=== PATIENT | male | born 1945 | race Caucasian/White ===

== ENCOUNTER → 2023-08-03 07:12 | Outpatient (REF) | payer MEDICARE, OTHER, SELFPAY ==
[2023-08-03 08:07] LABS: % Basophils 0.9 % (0-2); % Eosinophils 3.5 % (0-6); % Immature Granulocytes 0.3 % (0-0.5); % Lymphocytes 28.5 % (20.5-51.1); % Monocytes 7.9 % (1.7-9.3); % Neutrophils 58.9 % (42.2-75.2); Absolute Basophils 0.1 10^3/uL (0-0.2); Absolute Eosinophils 0.2 10^3/uL (0-0.7); Absolute Lymphocytes 1.9 10^3/uL (1.2-3.4); Absolute Monocytes 0.5 10^3/uL (0.1-0.6); Hematocrit 48.9 % (39.0-52.0); Hemoglobin 16.7 g/dL (13.0-18.0); Mean Corp Hgb Conc. 34.2 g/dL (33.0-37.0); Mean Corpuscular Hgb 31.5 pg (27.0-31.0); Mean Corpuscular Volume 92.3 fL (80.0-94.0); Mean Platelet Volume 10.8 fL (7.4-10.4); Nucleated Red Blood Cells % 0 % (-); Platelet Count 175 10^3/uL (130-400); Red Cell Dist. Width 13.7 % (11.5-14.5); White Blood Cell Count 6.8 10^3/uL (4.8-10.8)
[2023-08-03 09:42] LABS: ALT (SGPT) 23 U/L (0-50); AST (SGOT) 28 U/L (17-59); Albumin 4.2 g/dl (3.5-5.0); Alkaline Phosphatase 72 U/L (38-126); Blood Urea Nitrogen 22 mg/dl (9-20); Calcium 9.4 mg/dl (8.4-10.2); Carbon Dioxide 29 mmol/L (22-30); Chloride 104 mmol/L (98-107); Glucose 106 mg/dl (70-99); Potassium 4.3 mmol/L (3.5-5.1); Sodium 137 mmol/L (135-145); Total Bilirubin 0.4 mg/dl (0.2-1.3); Total Protein 6.4 g/dl (6.3-8.2); Uric Acid 4.9 mg/dl (3.5-8.5); eGFR > 60.00
== END ==
LOC: REG 07:12
PROVIDERS: ATTENDING PHYSICIAN Hospitalist; FAMILY PHYSICIAN Student in an Organized Health Care Education/Training Program
DX: M10.9 Gout, unspecified (principal); Z79.899 Other long term (current) drug therapy
CPT/HCPCS: 36415; 80053; 84550; 85025

== ENCOUNTER → 2023-09-13 06:44 | Outpatient (REF) | payer MEDICARE, OTHER, SELFPAY ==
[2023-09-13 07:48] LABS: HDL Cholesterol 31 mg/dl; LDL Cholesterol, Calculated 83 mg/dl; Total Cholesterol 162 mg/dl (50-199); Triglyceride 244 mg/dl (10-149); Very Low Density Lipoprotein 48 mg/dl (0-30)
[2023-09-13 09:00] LABS: Glycohemoglobin (HgbA1c) 5.9 % (4.0-5.6)
[2023-09-13 09:30] LABS: PSA, Total - Screen 2.98 ng/ml (0.0-4.0)
[2023-09-13 09:34] LABS: TSH Reflex To Free T4 3.36 uIU/ml (0.47-4.68)
[2023-09-13 10:24] LABS: Vitamin B12 978 pg/ml (239-931)
[2023-09-13 15:43] LABS: Syphilis/T. pallidum Ab Reflex Negative (Negative)
[2023-09-15 19:51] LABS: Albumin 4.43 g/dL (3.75-5.01); Alpha 1 Globulin 0.31 g/dL (0.19-0.46); Alpha 2 Globulin 0.67 g/dL (0.48-1.05); SPEP IFE Reflex Not Done; Total Protein-Electrophoresis 6.8 g/dL (6.3-8.2)
== END ==
LOC: REG 06:44
PROVIDERS: ATTENDING PHYSICIAN Student in an Organized Health Care Education/Training Program
DX: G62.9 Polyneuropathy, unspecified (principal); E78.00 Pure hypercholesterolemia, unspecified; Z12.5 Encounter for screening for malignant neoplasm of prostate; N52.8 Other male erectile dysfunction
CPT/HCPCS: 36415; 80061; 82607; 83036; 84155; 84165; 84403; 84443; 86780; G0103

== ENCOUNTER 2024-01-13 10:50 | Emergency (ER) | payer MEDICARE, OTHER, SELFPAY ==
[2024-01-13 10:53] VITALS: BP 157/88
--- NOTE | 2024-01-13 11:01 | ED.GENMED ---
History of Present Illness
General
Chief Complaint: Back Pain
Time Seen by Provider: 01/13/24 11:00
History of Present Illness
History of Present Illness:
HPI: Patient presents with low back pain that started a few weeks ago. 2.5yrs back injury -treated successfully with epidurals. 1 month ago, lifted heavy objects while helping his son move into a house in [place] now with ongoing/worsening low
back pain which radiates to the anterior thighs bilaterally. Pain worsened on his way back home from [place] driving there are no bowel or bladder incontinence or retention issues. No fevers. No other back pain 'red flags'.
EXAM:
GENERAL: Well appearing in no distress
HEENT: Moist oral mucosa
NEUROLOGIC: Excellent strength all extremities, no obvious coordination deficits, he has good strength in an L5 and S1 distribution
PSYCHIATRIC: Appropriate mental status, normal insight and judgement
BACK: There is some mild tenderness at the medial aspect of the right iliac crest region
EXTREMITIES: Nontender, no edema, moves all extremities equally
SKIN: No rash, no lesions
TIME OF INITIAL ENCOUNTER: 11:30 AM
NUMBER AND COMPLEXITY OF PROBLEMS ADDRESSED AT THE ENCOUNTER
� Chronic conditions affecting care: GERD, hyperlipidemia
� Acute Exacerbation and/or Progression of Chronic Illness: This is an acute problem
� Differential Diagnosis includes: Spinal stenosis, sciatica, herniated disc, degenerative disc disease, osteoarthritis
AMOUNT AND/OR COMPLEXITY OF DATA TO BE REVIEWED AND ANALYZED
� I performed an independent evaluation of and my interpretation is:
EKG:
CT:
X-rays: I personally reviewed x-rays of the pelvis and lumbar spine which show some mild degenerative disease but no definite acute abnormality
Laboratory Studies:
Other:
� Review of other/old records: I reviewed records�the patient had a vascular evaluation in July 2021
� Clinical information was obtained by an independent historian:
� Prescriptions/Medications Considered but not given: Offered and considered steroids�but he ultimately declined.
� Further testing considered but not performed:
RISK OF COMPLICATIONS AND/OR MORBIDITY OR MORTALITY OF PATIENT MANAGEMENT
� Social determinants of health affecting care: Lives at home
� Discussion with other providers:
� Escalation of care including admission/observation vs risk of discharge considered: The patient appears fairly comfortable. He does not necessarily want any narcotic analgesia, but would prefer narcotic over steroid given side
effects of steroids. Plain film imaging relatively unremarkable. Neurologic exam is unremarkable. He is well-appearing at time of discharge.
Past History
Past History
ED Past Medical History: GERD, Hypercholesterolemia and Other
ED Past Surgical History: Other (Agree with past surgical history)
Social History
Tobacco: Non-smoker
Personal:
Living: with family
Phy Exam
Physical Exam
Physical Exam:
See HPI
Course
Orders/Labs/Results
Orders:
Orders
01/13/24 11:49
CR Lumbar Spine Comp Min 4 Vw* Urgent
Comment:
Reason For Exam: pain R>L
CR Pelvis - 1 Or 2 Views Urgent
Comment:
Reason For Exam: pain R>L
Vital Signs
Initial and Last Documented VS:
Initial Vital Signs
Temp Pulse Resp BP Pulse Ox
98.7 F 80 18 157/88 97
01/13/24 10:53 01/13/24 10:53 01/13/24 10:53 01/13/24 10:53 01/13/24 10:53
Last Documented Vital Signs
Temp Pulse Resp BP Pulse Ox
98.7 F 80 18 157/88 97
01/13/24 10:53 01/13/24 10:53 01/13/24 10:53 01/13/24 10:53 01/13/24 10:53
*Critical Care Note
Total Time (30-74mins, 75-104mins- exclusive of procedures): Not Applicable
ED Attending Note
-
Portions of this chart may have been created with voice recognition software.� Occasional wrong word or��sound alike� substitutions may have occurred due to the inherent limitations of voice recognition software.
Discharge Plan
Departure
Patient Disposition: Home (Routine Discharge)
Date of Disposition: 01/13/24
Time of Disposition: 13:23
Patient with high blood pressure during this ER visit?: Yes
Discharge Problem:
Low back pain
Instructions: Low Back Pain (DC), BLOOD PRESSURE
Prescriptions:
New
hydrocodone-acetaminophen 5-325 mg tablet
1 tab PO Q8H PRN (Reason: Pain) Qty: 14 0RF
No Action
Aspirin
81 mg PO DAILY
Crestor:
20 mg PO DAILY
Dorzolamide/Timolol/Pf
2 drp BOTH EYES DAILY
Latanoprost
1 drp BOTH EYES DAILY
ondansetron [Zofran ODT] 8 MG tablet,disintegrating
8 mg PO TID PRN (Reason: nausea/vomiting) Qty: 20 0RF
prednisone 10 MG tablet
10 mg PO .TAPER Qty: 30 0RF
Rx Instructions:
Take 40mg daily x3days, 30mg daily x3days,
20mg daily x3days, 10mg daily x3days.
hydrocodone-acetaminophen 1 TABLET tablet
1 - 2 tab PO Q4HPRN PRN (Reason: pain) Qty: 15 0RF
benzonatate 100 mg capsule
200 mg PO BID PRN (Reason: Cough) Qty: 14 0RF
Referrals:
Jennifer Ayala MD [Family Provider] -
Activity Restrictions/Additional Instructions:
X-rays of the low back and pelvis are unremarkable. Mild degenerative disease is noted. I am sending a prescription for Vicodin for few days to your pharmacy. Please follow-up with your primary care doctor. Consider also taking 3-4
[id number] ibuprofen (Motrin) every 8 hours with food for a few days�these work differently than narcotics to. Return here if worse.
Interventions
Interventions:
*Risk Screen - Suicide Last Done: 01/13/24 10:53
*General Assessment Last Done: 01/13/24 10:53
*Neglect/Abuse Screening Last Done: 01/13/24 10:53
*Nursing Disposition Last Done: 01/13/24 13:36
ED-Musculoskeletal Assessment Last Done: 01/13/24 11:30
Discharge Date and Time
Discharge Date/Time: 01/13/24 13:37
Print Language: SOUTH SUDANESE
== END 2024-01-13 13:37 | disposition home or self-care (01) ==
LOC: EMR 10:50
PROVIDERS: EMERGENCY PHYSICIAN Emergency Medicine; FAMILY PHYSICIAN Student in an Organized Health Care Education/Training Program
DX: M54.50 Low back pain, unspecified (principal); X50.0XXA Overexertion from strenuous movement or load, initial encounter; Y93.89 Activity, other specified; R03.0 Elevated blood-pressure reading, without diagnosis of hypertension; K21.9 Gastro-esophageal reflux disease without esophagitis; E78.00 Pure hypercholesterolemia, unspecified; Z79.82 Long term (current) use of aspirin
CPT/HCPCS: 99283; 72110; 72170

== ENCOUNTER 2024-01-16 07:39 | Emergency (ER) | payer MEDICARE, OTHER, SELFPAY ==
[2024-01-16 07:40] VITALS: BP 140/70
--- NOTE | 2024-01-16 07:49 | ED.GENMED ---
History of Present Illness
General
Chief Complaint: Back Pain
Source: patient
Exam Limitations: none
Time Seen by Provider: 01/16/24 07:49
Nursing documentation reviewed up to this point in time: agreed with
History of Present Illness
History of Present Illness:
78-year-old male with history of GERD, HLD, right nephrectomy 2019, presents for low back pain. He was seen here 3 days ago for same after lifting heavy objects while helping his son move into his home in [place] and then driving home 3 weeks ago.
He was given a prescription for hydrocodone acetaminophen he states helped after the first dose but not since. He states Ibuprofen 800 mg also helped after the first dose but not since. He has been wearing his back brace for support which gives
him some relief. He is having trouble sleeping due to the pain. He states pain in mid to right lower back, radiates down front of thigh. Denies loss of bowel or bladder control, denies weakness in his legs or saddle anesthesia.
He had back pain 2.5 yrs ago and had epidural at that time. Denies f/c/n/v/d/c.
Has appointment with Tony but soonest appointment is 3 weeks from now.
Past History
Past History
ED Past Medical History: GERD, Hypercholesterolemia and Other
ED Past Surgical History: Other (Agree with past surgical history)
Social History
Tobacco: Non-smoker
Personal:
Living: with family
Review of Systems
Review of Systems
Allergies reviewed?: Yes
All Other Systems: ROS reviewed and negative except as documented in HPI and ROS
Constitutional: Denies fever
Cardiac: Denies chest pain
ABD/GI: Denies abdominal pain, nausea, vomiting or diarrhea
: Denies dysuria, frequency, incontinence or difficulty voiding
Musculoskeletal: Reports back pain (Right lower back with radiation down the front of right thigh)
Skin: Reports no symptoms
Neurological: Reports no symptoms
Phy Exam
Physical Exam
Physical Exam:
GENERAL: No acute distress. A&Ox3.
CONSTITUTIONAL: Afebrile.
EYES: clear, conjunctivae normal
RESPIRATORY: Regular respirations, nonlabored, lungs clear.
CARDIOVASCULAR: Regular rate and rhythm, no murmurs, no rubs.
GI: Soft, nontender, normal BS
MUSCULOSKELETAL: Unable to elicit pain with palpation of the lower back the patient 0.2 the immediate right of L3 to identify where his pain is. Neg bilateral SLR. Full ROM at hip, knee, ankle. Pt moving well, up and down off stretcher, ambulating
well but slowly. Well perfused.
SKIN: Warm, dry, pink
PSYCH: Normal mood and affect. Well kept, interactive and appropriate
NEUROLOGIC: Awake, alert and oriented. No focal neurological deficits
Course
Orders/Labs/Results
Orders:
Orders
01/16/24 08:03
Dexamethasone Pf [Decadron] 10 mg PO NOW STA
Vital Signs
Initial and Last Documented VS:
Initial Vital Signs
Temp Pulse Resp BP Pulse Ox
97.7 F 68 16 140/70 98
01/16/24 07:40 01/16/24 07:40 01/16/24 07:40 01/16/24 07:40 01/16/24 07:40
Last Documented Vital Signs
Temp Pulse Resp BP Pulse Ox
97.7 F 78 16 136/75 98
01/16/24 07:40 01/16/24 08:42 01/16/24 08:42 01/16/24 08:42 01/16/24 08:42
MDM/Problems Addressed
Differential Diagnosis Includes:
low back strain, bulging disc, sciatica, DJD spine
MDM/Problems Addressed:
78-year-old male with history of GERD, HLD, right nephrectomy 2020, presents for low back pain. He was seen here 3 days ago for same after lifting heavy objects while helping his son move into his home in [place] and then driving home 3 weeks ago.
He was given a prescription for hydrocodone acetaminophen he states helped after the first dose but not since. He states Ibuprofen 800 mg also helped after the first dose but not since. He has been wearing his back brace for support which gives
him some relief. He is having trouble sleeping due to the pain. He states pain in mid to right lower back, radiates down front of thigh. Denies loss of bowel or bladder control, denies weakness in his legs or saddle anesthesia.
He had back pain 2.5 yrs ago and had epidural at that time. Denies f/c/n/v/d/c.
Has appointment with Tony but soonest appointment is 3 weeks from now.
Afebrile, NAD
No infectious signs
Hx mechanical injury
No cauda equina
Pt moving about well independently
Requesting steroids as they have helped in the past
Rx for prednisone taper sent to his pharmacy
*Critical Care Note
Total Time (30-74mins, 75-104mins- exclusive of procedures): Not Applicable
ED Attending Note
-
Portions of this chart may have been created with voice recognition software.� Occasional wrong word or��sound alike� substitutions may have occurred due to the inherent limitations of voice recognition software.
Discharge Plan
Departure
Patient Disposition: Home (Routine Discharge)
Date of Disposition: 01/16/24
Time of Disposition: 08:12
Patient with high blood pressure during this ER visit?: No
Condition: Good
Discharge Problem:
Acute low back pain with right-sided sciatica
Instructions: Low Back Pain (DC), Sciatica (DC)
Prescriptions:
New
prednisone 10 mg Tablet
See Rx Instructions .ROUTE .COMPLEX Qty: 30 0RF
Rx Instructions:
Take By Mouth:
40 mg daily x3 days, 30 mg daily x3 days,
20 mg daily x3 days, 10 mg daily x3 days.
No Action
Aspirin
81 mg PO DAILY
Crestor:
20 mg PO DAILY
Dorzolamide/Timolol/Pf
2 drp BOTH EYES DAILY
Latanoprost
1 drp BOTH EYES DAILY
ondansetron [Zofran ODT] 8 MG tablet,disintegrating
8 mg PO TID PRN (Reason: nausea/vomiting) Qty: 20 0RF
prednisone 10 MG tablet
10 mg PO .TAPER Qty: 30 0RF
Rx Instructions:
Take 40mg daily x3days, 30mg daily x3days,
20mg daily x3days, 10mg daily x3days.
hydrocodone-acetaminophen 1 TABLET tablet
1 - 2 tab PO Q4HPRN PRN (Reason: pain) Qty: 15 0RF
benzonatate 100 mg capsule
200 mg PO BID PRN (Reason: Cough) Qty: 14 0RF
hydrocodone-acetaminophen 5-325 mg tablet
1 tab PO Q8H PRN (Reason: Pain) Qty: 14 0RF
Referrals:
Jennifer Ayala MD [Family Provider] - Follow up in 5-7 days
Activity Restrictions/Additional Instructions:
As we discussed, you were given a dose of a steroid (Decadron 10 mg) here today
I sent a prescription to your pharmacy for a prednisone taper, started tomorrow.
You may continue ibuprofen 600 mg up to 3 times a day if needed for pain
Heating pad may help
Continue wearing your back brace for support since it helped
Keep your appointment with pain management in 3 weeks
In the meantime, see your family doctor for recheck in 5 to 7 days if not significantly better by the
Interventions
Interventions:
*Risk Screen - Suicide Last Done: 01/16/24 07:40
*General Assessment Last Done: 01/16/24 08:42
*Neglect/Abuse Screening Last Done: 01/16/24 07:40
ED- Fall Risk Assessment Last Done: 01/16/24 08:42
*ED COVID-19 Vaccine History Last Done: 01/16/24 08:42
*Nursing Disposition Last Done: 01/16/24 08:42
ED-Musculoskeletal Assessment Last Done: 01/16/24 08:42
Discharge Date and Time
Discharge Date/Time: 01/16/24 08:45
Print Language: THAI
[2024-01-16] MEDS: DECADRON 10 MG PO (08:18)
[2024-01-16 08:42] VITALS: BP 136/75
== END 2024-01-16 08:45 | disposition home or self-care (01) ==
LOC: EMR 07:39
PROVIDERS: EMERGENCY PHYSICIAN Emergency Medicine; FAMILY PHYSICIAN Student in an Organized Health Care Education/Training Program
DX: M54.41 Lumbago with sciatica, right side (principal); K21.9 Gastro-esophageal reflux disease without esophagitis; E78.00 Pure hypercholesterolemia, unspecified
CPT/HCPCS: 99283

== ENCOUNTER → 2024-07-16 06:20 | Outpatient (REF) | payer MEDICARE, OTHER, SELFPAY ==
[2024-07-16 07:19] LABS: % Basophils 0.6 % (0-2); % Eosinophils 3.3 % (0-6); % Immature Granulocytes 0.3 % (0-0.5); % Lymphocytes 24.4 % (20.5-51.1); % Monocytes 7.8 % (1.7-9.3); % Neutrophils 63.6 % (42.2-75.2); Absolute Eosinophils 0.2 10^3/uL (0-0.7); Absolute Lymphocytes 1.8 10^3/uL (1.2-3.4); Absolute Monocytes 0.6 10^3/uL (0.1-0.6); Absolute Neutrophils 4.6 10^3/uL (1.4-6.5); Hematocrit 49.3 % (39.0-52.0); Hemoglobin 16.6 g/dL (13.0-18.0); Mean Corp Hgb Conc. 33.7 g/dL (33.0-37.0); Mean Platelet Volume 11.1 fL (7.4-10.4); Nucleated Red Blood Cells % 0 % (-); Platelet Count 181 10^3/uL (130-400); Red Blood Cell Count 5.36 10^6/uL (4.70-6.10); Red Cell Dist. Width 13.4 % (11.5-14.5); White Blood Cell Count 7.2 10^3/uL (4.8-10.8)
[2024-07-16 07:52] LABS: ALT (SGPT) 26 U/L (0-50); AST (SGOT) 26 U/L (17-59); Albumin 4.1 g/dl (3.5-5.0); Alkaline Phosphatase 57 U/L (38-126); Blood Urea Nitrogen 21 mg/dl (9-20); Calcium 9.8 mg/dl (8.4-10.2); Carbon Dioxide 32 mmol/L (22-30); Chloride 104 mmol/L (98-107); Glucose 98 mg/dl (70-99); Potassium 4.2 mmol/L (3.5-5.1); Sodium 143 mmol/L (135-145); Total Bilirubin 0.9 mg/dl (0.2-1.3); Total Protein 6.3 g/dl (6.3-8.2); Uric Acid 4.8 mg/dl (3.5-8.5); eGFR > 60.00
== END ==
LOC: REG 06:20
PROVIDERS: ATTENDING PHYSICIAN Hospitalist; FAMILY PHYSICIAN Student in an Organized Health Care Education/Training Program
DX: M10.9 Gout, unspecified (principal); Z79.899 Other long term (current) drug therapy
CPT/HCPCS: 36415; 80053; 84550; 85025

== ENCOUNTER → 2024-09-03 07:25 | Outpatient (REF) | payer MEDICARE, OTHER, SELFPAY ==
[2024-09-03 10:21] LABS: HDL Cholesterol 32 mg/dl; LDL Cholesterol, Calculated 148 mg/dl; Total Cholesterol 218 mg/dl (50-199); Triglyceride 191 mg/dl (10-149); Very Low Density Lipoprotein 38 mg/dl (0-30)
[2024-09-03 10:52] LABS: PSA, Total - Screen 2.69 ng/ml (0.0-4.0)
[2024-09-03 11:38] LABS: Glycohemoglobin (HgbA1c) 5.4 % (4.0-5.6)
== END ==
LOC: REG 07:25
PROVIDERS: ATTENDING PHYSICIAN Student in an Organized Health Care Education/Training Program; FAMILY PHYSICIAN Student in an Organized Health Care Education/Training Program
DX: G62.9 Polyneuropathy, unspecified (principal); E78.9 Disorder of lipoprotein metabolism, unspecified; Z12.5 Encounter for screening for malignant neoplasm of prostate; D58.2 Other hemoglobinopathies
CPT/HCPCS: 36415; 80061; 83036; G0103

== ENCOUNTER → 2024-09-25 06:33 | Outpatient (REF) | payer MEDICARE, OTHER, SELFPAY ==
[2024-09-25 07:42] LABS: HDL Cholesterol 26 mg/dl; LDL Cholesterol, Calculated 92 mg/dl; Total Cholesterol 161 mg/dl (50-199); Triglyceride 215 mg/dl (10-149); Very Low Density Lipoprotein 43 mg/dl (0-30)
== END ==
LOC: REG 06:33
PROVIDERS: ATTENDING PHYSICIAN Student in an Organized Health Care Education/Training Program; FAMILY PHYSICIAN Student in an Organized Health Care Education/Training Program
DX: E78.2 Mixed hyperlipidemia (principal)
CPT/HCPCS: 36415; 80061

== ENCOUNTER 2025-02-24 01:58 | Emergency (ER) | payer MEDICARE, OTHER, SELFPAY ==
[2025-02-24 02:07] VITALS: BP 180/92
[2025-02-24 02:09] VITALS: BP 180/93
[2025-02-24 02:14] VITALS: BMI 22.4
[2025-02-24 02:26] LABS: Hematocrit 44.3 % (39.0-52.0); Hemoglobin 15.5 g/dL (13.0-18.0); Mean Corp Hgb Conc. 35.0 g/dL (33.0-37.0); Mean Corpuscular Volume 91.5 fL (80.0-94.0); Nucleated Red Blood Cells % 0 % (-); Platelet Count 166 10^3/uL (130-400); Red Cell Dist. Width 13.6 % (11.5-14.5)
[2025-02-24 02:49] LABS: ALT (SGPT) 22 U/L (0-50); AST (SGOT) 24 U/L (17-59); Albumin 4.4 g/dl (3.5-5.0); Alkaline Phosphatase 57 U/L (38-126); Blood Urea Nitrogen 28 mg/dl (9-20); Calcium 10.0 mg/dl (8.4-10.2); Carbon Dioxide 26 mmol/L (22-30); Chloride 105 mmol/L (98-107); Estimated Creatinine Clearance 64 ml/min; Glucose 120 mg/dl (70-99); Potassium 4.1 mmol/L (3.5-5.1); Sodium 140 mmol/L (135-145); Total Protein 6.6 g/dl (6.3-8.2); eGFR > 60.00
[2025-02-24 02:59] LABS: Troponin I < 0.012 ng/ml
[2025-02-24 03:00] VITALS: BP 137/75
[2025-02-24 04:00] VITALS: BP 138/83
--- NOTE | 2025-02-24 04:42 | ED.GENMED ---
History of Present Illness
General
Chief Complaint: Anxiety
Source: patient and spouse
Exam Limitations: none
Time Seen by Provider: 02/24/25 02:09
History of Present Illness
History of Present Illness:
The patient is a 79-year-old male who presents with chest pain, a sensation of panic, shortness of breath, and dizziness. The patient reports that these symptoms began after consuming a THC gummy, an action taken in an attempt to improve sleep. The
patient notes that the symptoms initiated shortly after taking a whole gummy tonight. Prior to this, he only consumed a half gummy and does not commonly use them. He associates his symptoms with a dry mouth and feels paranoid about the situation. An
Electrocardiogram (EKG) was performed, revealing no signs indicative of myocardial infarction. The patient mentioned he normally struggles with sleep and takes melatonin sporadically, which sometimes leads to rebound insomnia when used consecutively.
His only daily medication is allopurinol.
Past History
Past History
ED Past Medical History: GERD, Hypercholesterolemia and Other (Gout)
ED Past Surgical History: Appendectomy, Cholecystectomy and Urological (Right nephrectomy 2019)
Social History
Tobacco: Non-smoker
Alcohol: None
Personal:
Living: with family
Employment: Retired
Family History
Family History: Other (Noncontributory)
Phy Exam
Physical Exam
Physical Exam:
GENERAL: 79-year-old gentleman appears his stated age, awake and alert, pleasant, appears in no acute distress. is accompanying.
EYE: anicteric
NECK: Supple, nontender, no meningismus, no significant adenopathy.
ENT: posterior pharynx is clear, oral mucosa is mildly dry. No rhinorrhea.
CARDIAC: Regular rate and rhythm. no murmur.
LUNGS: Clear breath sounds bilaterally, no acute respiratory distress, no wheezes/rales/rhonchi
ABDOMEN: Soft, nondistended, without focal tenderness, normoactive BS.
NEUROLOGICAL: Alert and oriented x3, no focal neuro deficits.
SKIN: Warm and dry, normal color, skin intact. No rash.
MUSCULOSKELETAL: No C/C/E. peripheral pulses are full and equal b/l. No palpable tenderness.
PSYCH: Very mildly anxious, easily communicative.
Course
Orders/Labs/Results
Orders:
Orders
02/24/25 01:59
ECG [Electrocardiogram (*1)] Urgent
Reason for Study: Chest Pain
02/24/25 02:00
EKG- Treatment ONCE
02/24/25 02:15
Cardiac Monitoring- Treatment ONCE
IV Insert/Care/Rem.- Treatment PRN
CR Chest - 2 Views Urgent
Comment:
Reason For Exam: cp/sob
O2 Therapy [RESP] Urgent
Titrate/Wean O2 to maintain O2 sat greater than (%): 90
Special Instructions: Maintain sats >/=90%
Pulse Ox/spot Check [RESP] Urgent
Quantity: 1
Special Instructions: ON ROOM AIR
02/24/25 02:17
Complete Blood Count/With Diff Urgent
Comprehensive Metabolic Panel Urgent
Troponin I Urgent
02/24/25 03:24
EKG- Treatment ONCE
02/24/25 04:00
Electrocardiogram (*1) Urgent
Reason for Study: Chest Pain
Troponin I Urgent
Abnormal Lab Results
02/24/25
02:17
MCH 32.0 H pg
(27.0-31.0)
MPV 11.1 H fL
(7.4-10.4)
Absolute Monos (auto) 0.7 H 10^3/uL
(0.1-0.6)
BUN 28 H mg/dl
(9-20)
Glucose 120 H mg/dl
(70-99)
02/24/25 02:17
02/24/25 02:17
Vital Signs
Initial and Last Documented VS:
Initial Vital Signs
Temp Pulse Resp BP Pulse Ox
97.8 F 66 20 180/92 97
02/24/25 02:07 02/24/25 02:07 02/24/25 02:07 02/24/25 02:07 02/24/25 02:07
Last Documented Vital Signs
Temp Pulse Resp BP Pulse Ox
97.8 F 62 14 138/83 94
02/24/25 02:07 02/24/25 04:30 02/24/25 04:30 02/24/25 04:00 02/24/25 04:49
MDM/Problems Addressed
Differential Diagnosis Includes:
The Differential Diagnosis includes, in no particular order and is not limited to:
1. Acute Anxiety or Panic Attack
2. Myocardial Ischemia
3. Drug-Induced Reaction (THC)
4. Transient Ischemic Attack
5. Orthostatic Hypotension
6. Hypoglycemia
7. Hyperventilation Syndrome
8. Dehydration
9. Atrial Fibrillation
10. Gastroesophageal Reflux Disease (GERD)
MDM/Problems Addressed:
Acute paranoia accompanied with chest pain, feeling of panic, shortness of breath, dizziness and dry mouth.
I highly suspect 10 mg THC ingestion as cause for his symptoms.
EKG is reassuring, no evidence of ischemia.
No prior history of CAD nor thromboembolism and no significant risk factors for such.
Will check labs as well as chest x-ray and continue to monitor.
*Radiology
Radiology exam reviewed: preliminary read by ED provider (Chest x-ray is unremarkable and unchanged from previous.)
*Pulse Oximetry
SaO2: 94
Oxygen Mode of Delivery: Room air
Patient hypoxic: no
*EKG
Interpreted by ED Provider?: Yes
Interpretation: normal
Comparison EKG: no comparison EKG present
Rate: normal
Rhythm: sinus and PAC's
[place]: normal axis
Interval: normal interval
QRS Pattern: normal QRS
Ischemia: no ischemia
*Wall Cleaner Interpretation
Rate: normal
Interpretation: normal
Rhythm: sinus
*Critical Care Note
Total Time (30-74mins, 75-104mins- exclusive of procedures): Not Applicable
Update Note
Update Note:
04:55
Labs are unremarkable including normal troponin x 2.
As above, highly suspect symptoms related to THC gummy patient has been encouraged to avoid THC going forward.
Recommend prompt follow-up with PCP to discuss options for issues with insomnia.
ED Attending Note
-
Portions of this chart may have been created with voice recognition software.� Occasional wrong word or��sound alike� substitutions may have occurred due to the inherent limitations of voice recognition software.
Discharge Plan
Departure
Patient Disposition: Home (Routine Discharge)
Date of Disposition: 02/24/25
Time of Disposition: 04:53
Patient with high blood pressure during this ER visit?: No
Condition: Good
Discharge Problem:
Adverse effect of cannabis, Insomnia
Instructions: Insomnia, Good sleep hygiene
Prescriptions:
No Action
Aspirin
81 mg PO DAILY
Crestor:
20 mg PO DAILY
Dorzolamide/Timolol/Pf
2 drp BOTH EYES DAILY
Latanoprost
1 drp BOTH EYES DAILY
ondansetron [Zofran ODT] 8 MG tablet,disintegrating
8 mg PO TID PRN (Reason: nausea/vomiting) Qty: 20 0RF
prednisone 10 MG tablet
10 mg PO .TAPER Qty: 30 0RF
Rx Instructions:
Take 40mg daily x3days, 30mg daily x3days,
20mg daily x3days, 10mg daily x3days.
hydrocodone-acetaminophen 1 TABLET tablet
1 - 2 tab PO Q4HPRN PRN (Reason: pain) Qty: 15 0RF
benzonatate 100 mg capsule
200 mg PO BID PRN (Reason: Cough) Qty: 14 0RF
hydrocodone-acetaminophen 5-325 mg tablet
1 tab PO Q8H PRN (Reason: Pain) Qty: 14 0RF
prednisone 10 mg Tablet
See Rx Instructions .ROUTE .COMPLEX Qty: 30 0RF
Rx Instructions:
Take By Mouth:
40 mg daily x3 days, 30 mg daily x3 days,
20 mg daily x3 days, 10 mg daily x3 days.
Referrals:
Jennifer Ayala MD [Family Provider, Internal Medicine] - Call in 1-3 days for appt
Interventions
Interventions:
*Risk Screen - Suicide Last Done: 02/24/25 02:07
*General Assessment Last Done: 02/24/25 02:14
*Neglect/Abuse Screening Last Done: 02/24/25 02:07
*ED- Fall Risk Assessment Last Done: 02/24/25 02:14
*ED COVID-19 Vaccine History Last Done: 02/24/25 02:14
*ED Influenza Vaccine History Last Done: 02/24/25 02:14
ED- Cardiac Assessment Last Done: 02/24/25 03:30
ED-Psychological Assessment Last Done: 02/24/25 03:30
Discharge Date and Time
Print Language: JAPANESE
[2025-02-24 04:44] LABS: Troponin I < 0.012 ng/ml
== END 2025-02-24 05:14 | disposition home or self-care (01) ==
LOC: EMR 01:58
PROVIDERS: EMERGENCY PHYSICIAN Emergency Medicine; FAMILY PHYSICIAN Student in an Organized Health Care Education/Training Program
DX: R07.9 Chest pain, unspecified (principal); R06.02 Shortness of breath; R42 Dizziness and giddiness; T40.715A Adverse effect of cannabis, initial encounter; G47.00 Insomnia, unspecified; E78.00 Pure hypercholesterolemia, unspecified; K21.9 Gastro-esophageal reflux disease without esophagitis; M10.9 Gout, unspecified; Z90.5 Acquired absence of kidney
CPT/HCPCS: 99284; 71046; 80053; 84484; 85025; 93005

== ENCOUNTER → 2025-03-12 06:43 | Outpatient (REF) | payer MEDICARE, OTHER, SELFPAY | LOC: RAD 06:43 | PROVIDERS: ATTENDING PHYSICIAN Surgery Vascular Surgery; FAMILY PHYSICIAN Student in an Organized Health Care Education/Training Program | DX: I71.40 Abdominal aortic aneurysm, without rupture, unspecified (principal) | CPT/HCPCS: 76770 ==